=== PATIENT | male | born 1960 | race Caucasian/White ===

== ENCOUNTER → 2018-08-31 14:16 | Outpatient (REF) | payer MEDICARE, SELFPAY ==
[2018-08-31 20:41] LABS: Basophils % 0.4 % (0.1-2.0); Eosinophils # 0.5 K/mm3 (0.0-0.4); Hematocrit 47.3 % (42.0-52.0); Hemoglobin 15.6 g/dL (14.1-18.0); Lymphocytes # 2.6 K/mm3 (0.7-4.5); Mean Corpuscular HGB Conc 32.9 g/dL (31.8-35.4); Mean Corpuscular Hemoglobin 30.8 pg (27.0-31.2); Mean Corpuscular Volume 93.5 fl (80-94); Mean Platelet Volume 8.3 fl (7.4-10.4); Monocytes # 0.7 K/mm3 (0.1-1.0); Monocytes % 7.9 % (1.7-9.3); Neutrophils # 5.2 K/mm3 (1.8-7.8); Neutrophils % 57.7 % (37.0-80.0); Platelet Count 231 K/mm3 (142-424); Red Blood Count 5.05 M/mm3 (4.60-6.20); Red Cell Distribution Width 13.3 % (11.5-17.5)
[2018-08-31 21:06] LABS: Alanine Aminotransferase 84 U/L (12-78); Albumin Level 3.6 gm/dL (3.4-5.0); Albumin/Globulin Ratio 0.9 (1.1-1.8); Alkaline Phosphatase 113 U/L (46-116); Anion Gap 12.1 mEq/L (5-15); Aspartate Amino Transferase 42 U/L (15-37); Bilirubin,Total 0.5 mg/dL (0.2-1.0); Blood Urea Nitrogen 14 mg/dL (7-18); Calcium 8.6 mg/dL (8.5-10.1); Carbon Dioxide 25 mmol/L (21.0-32.0); Chloride 105 mmol/L (98-107); Creatinine,Serum 0.83 mg/dL (0.70-1.30); Estimated Glomerular Filt Rate 95 ml/min (>60); Free T4 (Free Thyroxine) 0.94 ng/dl (0.76-1.46); GFR (African American) 115 ML/MIN (>60); Globulin 4.2 gm/dl (1.3-3.2); Glucose 119 mg/dL (74-106); Potassium 4.1 mmoL/L (3.5-5.1); Sodium 138 mmol/L (136-145); Thyroid Stimulating Hormone 1.35 uIU/ml (0.358-3.740); Total Protein,Serum 7.8 gm/dL (6.4-8.2)
[2018-08-31 21:43] LABS: Erythrocyte Sedimentation Rate 24 mm/hr (0-20)
== END ==
LOC: LAB 14:16
PROVIDERS: PCP Emergency Medicine; Visit Provider Emergency Medicine
DX: I10 Essential (primary) hypertension (principal)
CPT/HCPCS: 80053; 84439; 84443; 85025; 85651

== ENCOUNTER → 2019-04-14 06:46 | Outpatient (CLI) | payer MEDICARE, MEDICAID, SELFPAY ==
--- NOTE | 2019-04-14 06:48 | NM_ITS ---
CARDIOLITE SPECT MYOCARDIAL PERFUSION LEXISCAN, REST AND STRESS: [facility] REVIEW QGS EF AND WALL MOTION EVALUATION: QPS - PERFUSION EVALUATION HISTORY: C.P. DOSE: 10.0 mCi technetium 99m mibi intravenously at rest followed by 29.1 mCi technetium 99m mibi following the intravenous ministration of 0.4 mg of Lexiscan. Resting blood pressure is 140/69. Stress blood pressure 128/65. FINDINGS: Ejection fraction is calculated to be 50%. Uniform myocardial activity at both stress and rest gated images calculated ejection fraction of 50% with normal wall motion IMPRESSION: No scintigraphic evidence of Lexiscan-induced myocardial ischemia with normal ejection fraction normal wall motion
--- NOTE | 2019-04-14 06:48 | CA_ITS ---
PROCEDURE: 2-D M-mode and color Doppler study INDICATIONS FOR THE TEST: Chest pain + COPD Heart Murmur Tobacco Smoking Palpitations Fatigue+ Syncope Edema+ Hypertension+Diabetes Mellitus Rheumatic Fever SOB+CHACON Obesity Hyperlipidemia+ Family History HD+ Additional History STENTS,CABG,ABN EKG PATIENT INFORMATION HEIGHT:66 WEIGHT:230 GENDER: Male B/P:140/74 2-D/M-MODE INTERPRETATION: 2-D MEASUREMENTS OBSERVED VALUES IN CMS Right Ventricular Dimension (RVDd) 2.6 Interventricular Septum (Thickness)(IVsd) 1.1 Left Ventricular Internal Dimensions(LVIDd) 4.9 Left Ventricular Posterior Wall (Thickness)(LVPWd) 1.0 Aortic Root 3.3 Aortic Cusp Separation 2.2 Left Atrial Dimensions (LAD) 4.4 2D 1. Left atrium is mildly enlarged, left ventricle is normal size, mild concentric left ventricular hypertrophy, visually estimated ejection fraction 50% with no regional wall motion abnormality. 2. The right atrium and right ventricle are normal size and contractility. 3. The aortic valve is minimally thickened and fibrosed. 4. The mitral and tricuspid valvular grossly normal. 5. The pulmonic valve is poorly present. 6. No significant pericardial effusion noted. DOPPLER INTERROGATION: Doppler interrogation of the aortic, mitral and tricuspid valvular presence of mild mitral and tricuspid regurgitation, tricuspid regurgitation jet velocity is inadequate for calculation of the right ventricular systolic pressure, grade 1 diastolic dysfunction seen with tissue Doppler evidence of raised left atrial pressure. CONCLUSION: 1. Mildly enlarged left atrium, normal left ventricular size, mild concentric left ventricular hypertrophy, visually estimated ejection fraction of 50% with no regional wall motion abnormality, grade 1 diastolic dysfunction seen with tissue Doppler evidence of raised left atrial pressure. 2. Mild mitral and tricuspid regurgitation 3. No significant pericardial effusion noted
--- NOTE | 2019-04-14 10:21 | HMH.ITSHM ---
Current Home Medications as stated by this patient Blaise Mccray or policy services representative. []patoprazole nitro lisinopril bisoprolol atorvastatin amlodipine asa
== END ==
PROVIDERS: PCP Emergency Medicine; Visit Provider Internal Medicine
DX: I11.9 Hypertensive heart disease without heart failure (principal); I25.10 Atherosclerotic heart disease of native coronary artery without angina pectoris; I25.709 Atherosclerosis of coronary artery bypass graft(s), unspecified, with unspecified angina pectoris; R06.09 Other forms of dyspnea; R07.9 Chest pain, unspecified; R68.84 Jaw pain; Z95.5 Presence of coronary angioplasty implant and graft; E78.4 Other hyperlipidemia
CPT/HCPCS: 78452; 93017; 93306; A9502; J2785

== ENCOUNTER 2019-05-03 09:40 | Emergency (ER) | payer MEDICARE, MEDICAID, SELFPAY ==
[2019-05-03 09:49] VITALS: BP 149/83; PULSE 75; RESP 18; TEMP 36.7; O2SAT 97; BMI 36.8
--- NOTE | 2019-05-03 09:51 | CT_ITS ---
CT lower leg LT w con INDICATION: Pain and swelling with cellulitis along the anterior tibial region ITS.REASON: r/o abscess, worsening cellulitis ORDERING PHYSICIAN: Sukhdeep Olsen MD PATIENT AGE: 59 years COMPARISON: None TECHNIQUE: Contrast Used:70ml Optiray 350 Oral Contrast: Axial images were obtained. Sagittal and coronal reformatted images are reviewed as well. All CT scans at the facility use one or more dose reduction, viz: automated exposure control, ma/kV adjustment per patient size (including targeted exams where dose is matched to indication, i.e. head), or iterative reconstruction technique. FINDINGS: There is a 6.5 x 2 x 3 cm nonencapsulated fluid collection along the anterior and medial aspect of the mid shaft of the tibia corresponding to the palpable abnormality. There is thickening of the overlying skin. No gas evident within this collection. No enhancing margins. It could represent a hematoma or developing abscess. No osseous abnormalities apparent. No bony destructive process. No radiopaque foreign body. IMPRESSION: Nonencapsulated fluid collection in the subcutaneous soft tissues of the anterior and medial aspect of the mid tibia which may represent hematoma or developing abscess. There is associated thickening of the overlying skin with edema consistent with cellulitis.
--- NOTE | 2019-05-03 09:53 | HMH.EDGENADL ---
ED Disposition Clinical Impression: Posttraumatic pretibial hematoma of left lower extremity Clinical Impression: (Ruled Out): Cervical radicular pain, Foraminal stenosis of cervical region Disposition: Home, Self-Care Condition on Discharge: Fair Prescriptions: Sulfamethoxazole/Trimethoprim [Bactrim DS tablet] 1 each PO BID 8 Days #16 tab predniSONE [Prednisone 20mg Tab] 60 mg PO DAILY 5 Days #15 tab Tizanidine HCl [Zanaflex 4mg tablet] 4 mg PO BID 7 Days #16 tab Referrals: Sukhdeep Flores MD [Primary Care Provider] - Time of Disposition: 13:24 - Critical Care Critical Care Time: No Attestation: On 05/03/19, the high probability of a clinically significant, sudden or life threatening deterioration of the following system(s) required my full and direct attention, intervention and personal management. The time I documented below is in addition to time spent performing reported procedures but includes the following listed in this critical care notation. Medical Decision Making - Medical Records Medical records reviewed: Yes: I reviewed the patient's medical records. - Renny Inquiry Pt receiving controlled substance: No Renny was queried for this patient: No Vital Signs: 05/03/19 09:49 Temperature 98.0 F Temperature Source Oral Pulse Rate [Right Apical] 75 Respiratory Rate 18 Blood Pressure [Right Arm] 149/83 H Blood Pressure Mean [Right Arm] 105 02 Sat by Pulse Oximetry 97 Oxygen Delivery Method Room Air - Lab Data Lab results reviewed: Yes: I reviewed the patient's lab results. Lab Results 05/03/19 10:00: WBC 10.8, RBC 5.45, Hgb 15.7, Hct 48.6, MCV 89.2, MCH 28.9, MCHC 32.4, RDW 13.5, Plt Count 236, MPV 6.9 L, Neut % (Auto) 56.4, Lymph % (Auto) 29.8, Bremer % (Auto) 7.1, Eos % (Auto) 5.9, Baso % (Auto) 0.8, Neut # (Auto) 6.1, Lymph # (Auto) 3.2, Bremer # (Auto) 0.8, Eos # (Auto) 0.6 H, Baso # (Auto) 0.1 05/03/19 10:00: Sodium 138, Potassium 4.4, Chloride 104, Carbon Dioxide 27, Anion Gap 11.4, BUN 11, Creatinine 1.03, Estimated Creat Clear 113, Estimated GFR 74, Est GFR ( Amer) 89, Glucose 103, Calcium 8.5, Total Bilirubin 0.4, AST 35, ALT 57, Alkaline Phosphatase 120 H, Total Protein 8.3 H, Albumin 3.4, Globulin 4.9 H, Albumin/Globulin Ratio 0.7 L 05/03/19 10:00: Lactate 1.4 05/03/19 10:00: ESR 2 05/03/19 10:00: C-Reactive Protein 0.4 05/03/19 10:00: Hemoglobin A1c 6.4 Result diagrams: 05/03/19 10:00 05/03/19 10:00 Orders (Tests/Meds): ED MEDICATIONS Generic Name Dose Route Start Last Admin Trade Name Freq PRN Reason Stop Dose Admin Sodium Chloride 1,000 mls @ 250 mls/hr 05/03/19 10:00 05/03/19 10:17 Sod Chlor 0.9% 1000ml Bag IV 06/02/19 09:59 250 mls/hr .Q4H SMILEY Administration Discontinued Medications Generic Name Dose Route Start Last Admin Trade Name Freq PRN Reason Stop Dose Admin Hydromorphone HCl 1 mg 05/03/19 12:54 05/03/19 13:08 Dilaudid 2mg/Ml Syringe IV 05/03/19 12:55 1 mg ONCE ONE Administration Ioversol 75 ml 05/03/19 11:04 05/03/19 11:04 Rad-Optiray 350 100ml Vial IV 05/03/19 11:05 75 ml ONCE ONE Administration Protocol Sodium Chloride 10 ml 05/03/19 11:04 05/03/19 11:04 Rad-Saline Flush 10ml Syringe IV 05/03/19 11:05 10 ml ONCE ONE Administration ORDERS Category Date Time Status CT lower leg LT w con Stat Cat Scan 05/03/19 09:51 Taken Blood Culture Stat Micro 05/03/19 10:30 Received - Physician Consults Physician Consulted: felice Time: 12:31 Reason -: Orthopedic Eval/Care Comment/Response: spoke with Niall in specialty clinic. Dr. Cope will evaluate when she arrives here at [facility] today for office practice. Will hold on giving vancomycin until her consult as she may want to i&d patient and obtain cultures in OR Additional Consult: felice Comment/Response: patient had wound opened, hematoma drained, packed lightly by Dr. Cope herself, not this ED physician - Reevaluation(s) Time: 12:4
--- NOTE | 2019-05-03 09:57 | ED_ITS ---
ED Disposition Clinical Impression: Posttraumatic pretibial hematoma of left lower extremity Clinical Impression: (Ruled Out): Cervical radicular pain, Foraminal stenosis of cervical region Disposition: Home, Self-Care Condition on Discharge: Fair Prescriptions: Sulfamethoxazole/Trimethoprim [Bactrim DS tablet] 1 each PO BID 8 Days #16 tab predniSONE [Prednisone 20mg Tab] 60 mg PO DAILY 5 Days #15 tab Tizanidine HCl [Zanaflex 4mg tablet] 4 mg PO BID 7 Days #16 tab Referrals: Sukhdeep Flores MD [Primary Care Provider] - Time of Disposition: 13:24 - Critical Care Critical Care Time: No Attestation: On 05/03/19, the high probability of a clinically significant, sudden or life threatening deterioration of the following system(s) required my full and direct attention, intervention and personal management. The time I documented below is in addition to time spent performing reported procedures but includes the following listed in this critical care notation. Medical Decision Making - Medical Records Medical records reviewed: Yes: I reviewed the patient's medical records. - Renny Inquiry Pt receiving controlled substance: No Renny was queried for this patient: No Vital Signs: 05/03/19 09:49 Temperature 98.0 F Temperature Source Oral Pulse Rate [Right Apical] 75 Respiratory Rate 18 Blood Pressure [Right Arm] 149/83 H Blood Pressure Mean [Right Arm] 105 02 Sat by Pulse Oximetry 97 Oxygen Delivery Method Room Air - Lab Data Lab results reviewed: Yes: I reviewed the patient's lab results. Lab Results 05/03/19 10:00: WBC 10.8, RBC 5.45, Hgb 15.7, Hct 48.6, MCV 89.2, MCH 28.9, MCHC 32.4, RDW 13.5, Plt Count 236, MPV 6.9 L, Neut % (Auto) 56.4, Lymph % (Auto) 29.8, [place] % (Auto) 7.1, Eos % (Auto) 5.9, Baso % (Auto) 0.8, Neut # (Auto) 6.1, Lymph # (Auto) 3.2, [place] # (Auto) 0.8, Eos # (Auto) 0.6 H, Baso # (Auto) 0.1 05/03/19 10:00: Sodium 138, Potassium 4.4, Chloride 104, Carbon Dioxide 27, Anion Gap 11.4, BUN 11, Creatinine 1.03, Estimated Creat Clear 113, Estimated GFR 74, Est GFR ( Amer) 89, Glucose 103, Calcium 8.5, Total Bilirubin 0.4, AST 35, ALT 57, Alkaline Phosphatase 120 H, Total Protein 8.3 H, Albumin 3 .4, Globulin 4.9 H, Albumin/Globulin Ratio 0.7 L 05/03/19 10:00: Lactate 1.4 05/03/19 10:00: ESR 2 05/03/19 10:00: C-Reactive Protein 0.4 05/03/19 10:00: Hemoglobin A1c 6.4 Result diagrams: 05/03/19 10:00 05/03/19 10:00 Orders (Tests/Meds): ED MEDICATIONS Generic Name Dose Route Start Last Admin Trade Name Freq PRN Reason Stop Dose Admin Sodium Chloride 1,000 mls @ 250 mls/hr 05/03/19 10:00 05/03/19 10:17 Sod Chlor 0.9% 1000ml Bag IV 06/02/19 09:59 250 mls/hr .Q4H SMILEY Administration Discontinued Medications Generic Name Dose Route Start Last Admin Trade Name Freq PRN Reason Stop Dose Admin Hydromorphone HCl 1 mg 05/03/19 12:54 05/03/19 13:08 Dilaudid 2mg/Ml Syringe IV 05/03/19 12:55 1 mg ONCE ONE Administration Ioversol 75 ml 05/03/19 11:04 05/03/19 11:04 Rad-Optiray 350 100ml Vial IV 05/03/19 11:05 75 ml ONCE ONE Administration Protocol Sodium Chloride 10 ml 05/03/19 11:04 05/03/19 11:04 Rad
[2019-05-03 10:09] LABS: Basophils # 0.1 K/mm3 (0-0.2); Basophils % 0.8 % (0.1-2.0); Eosinophils # 0.6 K/mm3 (0.0-0.4); Eosinophils % 5.9 % (0.1-12.0); Hematocrit 48.6 % (42.0-52.0); Hemoglobin 15.7 g/dL (14.1-18.0); Lymphocytes # 3.2 K/mm3 (0.7-4.5); Lymphocytes % 29.8 % (10-50); Mean Corpuscular HGB Conc 32.4 g/dL (31.8-35.4); Mean Corpuscular Hemoglobin 28.9 pg (27.0-31.2); Mean Corpuscular Volume 89.2 fl (80-94); Mean Platelet Volume 6.9 fl (7.4-10.4); Monocytes # 0.8 K/mm3 (0.1-1.0); Monocytes % 7.1 % (1.7-9.3); Neutrophils # 6.1 K/mm3 (1.8-7.8); Neutrophils % 56.4 % (37.0-80.0); Platelet Count 236 K/mm3 (142-424); Red Blood Count 5.45 M/mm3 (4.60-6.20); Red Cell Distribution Width 13.5 % (11.5-17.5); White Blood Count 10.8 K/mm3 (4.8-10.8)
[2019-05-03 10:35] LABS: Alanine Aminotransferase 57 U/L (12-78); Albumin Level 3.4 gm/dL (3.4-5.0); Albumin/Globulin Ratio 0.7 (1.1-1.8); Alkaline Phosphatase 120 U/L (46-116); Anion Gap 11.4 mEq/L (5-15); Aspartate Amino Transferase 35 U/L (15-37); Bilirubin,Total 0.4 mg/dL (0.2-1.0); Blood Urea Nitrogen 11 mg/dL (7-18); Calcium 8.5 mg/dL (8.5-10.1); Carbon Dioxide 27 mmol/L (21.0-32.0); Chloride 104 mmol/L (98-107); Creatinine Clearance Estimated 113 mL/min (50-200); Creatinine,Serum 1.03 mg/dL (0.70-1.30); Estimated Glomerular Filt Rate 74 ml/min (>60); GFR (African American) 89 ML/MIN (>60); Globulin 4.9 gm/dl (1.3-3.2); Glucose 103 mg/dL (74-106); Potassium 4.4 mmoL/L (3.5-5.1); Sodium 138 mmol/L (136-145); Total Protein,Serum 8.3 gm/dL (6.4-8.2)
[2019-05-03 10:36] LABS: Lactic Acid 1.4 mmol/L (0.4-2.0)
[2019-05-03 10:47] LABS: C-Reactive Protein 0.4 mg/L (0.0-0.9)
[2019-05-03 10:53] LABS: Hemoglobin A1C 6.4 % (0.0-7.0)
--- NOTE | 2019-05-03 11:10 | PC.NURSE ---
PT BACK FROM CT
[2019-05-03 11:40] LABS: Erythrocyte Sedimentation Rate 2 mm/hr (0-20)
--- NOTE | 2019-05-03 12:44 | PC.NURSE ---
Dr. Cope at bedside
--- NOTE | 2019-05-03 13:09 | PC.NURSE ---
Dr. Cope follow up 05/11/19 at 1:00pm
[2019-05-03 14:57] VITALS: BP 124/74; PULSE 81; RESP 18; TEMP 36.7; O2SAT 98
== END 2019-05-03 14:59 | disposition home or self-care (01) ==
PROVIDERS: Emergency Provider Emergency Medicine; PCP Emergency Medicine
DX: L02.416 Cutaneous abscess of left lower limb (principal); I10 Essential (primary) hypertension; Z88.5 Allergy status to narcotic agent; Z87.891 Personal history of nicotine dependence
CPT/HCPCS: 73701; 80053; 83036; 83605; 85025; 85651; 86140; 87040; 96365; 96366; 96374; 96375; 99282; Q9967

== ENCOUNTER → 2019-07-25 11:20 | Outpatient (CLI) | payer MEDICARE, MEDICAID, SELFPAY ==
[2019-07-25 13:08] LABS: Alanine Aminotransferase 68 U/L (12-78); Albumin Level 3.3 gm/dL (3.4-5.0); Alkaline Phosphatase 116 U/L (46-116); Aspartate Amino Transferase 36 U/L (15-37); Bilirubin,Total 0.2 mg/dL (0.2-1.0); Chol/HDL Ratio 4.8 (1-3.5); Cholesterol 124 mg/dL (140-200); HDL Cholesterol 26 mg/dL (27-67); LDL Cholesterol 55 mg/dL (0-130); Total Protein,Serum 7.6 gm/dL (6.4-8.2); Triglycerides 217 mg/dL (30-200); VLDL Cholesterol 43 mg/dL (0-40)
[2019-07-25 13:19] LABS: Bilirubin,Direct 0.1 mg/dL (0.0-0.2); Bilirubin,Indirect 0.1 mg/dL (0.0-0.9)
== END ==
PROVIDERS: Visit Provider Nurse Practitioner Family
DX: E66.9 Obesity, unspecified (principal); I25.10 Atherosclerotic heart disease of native coronary artery without angina pectoris; I25.709 Atherosclerosis of coronary artery bypass graft(s), unspecified, with unspecified angina pectoris; T82.898A Other specified complication of vascular prosthetic devices, implants and grafts, initial encounter; Z95.5 Presence of coronary angioplasty implant and graft
CPT/HCPCS: 36415; 80061; 80076

== ENCOUNTER 2020-01-17 08:09 | Outpatient (RCR) | payer MEDICARE, MEDICAID, SELFPAY ==
--- NOTE | 2020-01-17 09:26 | HMH.PTOPEV ---
PT Outpatient Evaluation Rehab PT Outpatient Evaluation Start: 01/17/20 08:12 Freq: Status: Active Protocol: Document 01/17/20 09:09 BRANDON (Rec: 01/17/20 09:26 PHOIVIS [id number]) Electronically Signed By Onesimo Saul, PT 01/17/20 09:09 Outpatient Therapy Subjective History Subjective History Pt is 59 yowm who presents with c/o pain/stiffness/ weakness in the R LE x ~ 1 yr with insidious onset of symptoms. He states, I just get real weak even trying to clean the house. Pt is a poor historian and has difficulty pinpointing an exact location for his symptoms. He does have hx of R LE saphenous vein graft harvest for CABG. He has PMH of CO, CABG, DVT, stents, HTN, HL, and low back pain. He reports soreness, pain, and weakness with walking. However, he states If I walk about a 1/4 mile, thats when it starts to bother me. Chief Complaint Pain,Stiff,Weakness Symptom Type Ache,Sharp,Dull Symptoms Relieved By Rest/Positioning Symptoms Aggravated By Physical Activity,Walking Prior Functional Limitations None Current Functional Limitations Recreation Activity,Walking Symptom Description Constant but Variable Level of pain today (0-10) 3 Pain scale - at its worst (0-10) 8 Hip/Knee Eval Gait Observation General Gait Pattern Observation No Deviations/Normal Palpation Tenderness right Hip Palpation Findings Tenderness MMT bilateral Hip Flexion Strength Grade 5 Normal Hip Abduction Strength Grade 5 Normal Hip Adduction Strength Grade 5 Normal Hip Extension Strength Grade 5 Normal Gluteus Paxton Strength Grade 5 Normal Hip External Rotation Strength Grade 5 Normal Hip Internal Rotation Strength Grade 5 Normal Knee Extension Strength Grade 5 Normal Knee Flexion Strength Grade 5 Normal DTR Rt Patellar 2+ Lt Patellar 2+ Rt Ankle 2+ Lt Ankle 2+ Special Tests Hip Bowstring (Cram) Test Positive Left,Positive Right Hip Piriformis Test Negative Left,Positive Right Sciatic Nerve Tension Test Negative Left,Positive Right Hip Scouring (Quadrant) Test Negative Left,Negative Right Outpatient Therapy Assessment Impairments Problems/Impairmments
== END 2020-01-17 09:02 | disposition home or self-care (01) ==
LOC: PT 08:09
PROVIDERS: PCP Emergency Medicine; Visit Provider Emergency Medicine
DX: M79.18 Myalgia, other site (principal)
CPT/HCPCS: 97110; 97163

== ENCOUNTER → 2020-01-18 12:50 | Outpatient (CLI) | payer MEDICARE, MEDICAID, SELFPAY ==
--- NOTE | 2020-01-18 12:51 | US_ITS ---
APPROVED REPORT Exam Type: Ankle to Brachial Index Spotter: America Holloway RT(R) Indications Claudication: Right History of Smoking Risk Factors Hypertension CAD Hyperlipidemia Obesity Cardiac Disease History of CABG, 4 cardiac stents Pressures/Indices Right Indices Left Indices Brachial 137.00 mmHg Brachial 138.00 mmHg Low Thigh 92.00 mmHg 0.67 Low Thigh 132.00 mmHg 0.96 Calf 81.00 mmHg 0.59 Calf 126.00 mmHg 0.91 Ankle(PT) 96.00 mmHg 0.70 Ankle(PT) 145.00 mmHg 1.05 Ankle(DP) 88.00 mmHg 0.64 Ankle(DP) 135.00 mmHg 0.98 Digit 51.00 mmHg 0.37 Digit 111.00 mmHg 0.80 Conclusion RT KAYCE=0.7 LT KAYCE=1.1 RT TBI=0.4 LT TBI=0.8 Diminished pulses right lower extremity Abnormal distal waveforms right lower extremity Left lower extremity normal pulses, normal waveforms MODERATE ARTERIAL DISEASE ON THE RIGHT Electronically signed by : Will Gupta MD 01/19/2020 16:01:03
== END ==
PROVIDERS: PCP Emergency Medicine; Visit Provider Emergency Medicine
DX: R06.00 Dyspnea, unspecified (principal); I73.9 Peripheral vascular disease, unspecified
CPT/HCPCS: 93923; 94060; 94618; 94726; 94729

== ENCOUNTER 2020-03-04 08:19 | Day surgery (SDC) | payer MEDICARE, MEDICAID, SELFPAY ==
[2020-03-04] VITALS (16 sets, daily range): BP systolic 107–153; BP diastolic 57–94; PULSE 60–82; RESP 16–20; TEMP 36.7–36.9; O2SAT 94–100; BMI 37.3
--- NOTE | 2020-03-04 | IR_ITS ---
APPROVED REPORT Patient Location: Outpatient Substation Manager: WARREN Stack RT (R) PROCEDURES Right femoral arterial access Catheter placement in the abdominal aorta Abdominal aortography Repositioning of the catheter in the abdominal aorta Bilateral iliofemoral runoff Left femoral arterial access Bare-metal stent deployment to the proximal popliteal artery extending back into the superficial femoral artery Bare-metal stent deployment to the distal common femoral artery Angioplasty to the profunda femoris Catheter placement in the right popliteal artery Right popliteal artery antegrade selective angiogram INDICATION Jennifer class III claudication, Abnormal KAYCE 0.7 right side, Peripheral artery disease Informed consent was obtained prior to the procedure. COMPLICATIONS none Estimated Blood Loss: less than 10 mls TECHNIQUE 1% lidocaine used to anesthetize the right groin the right femoral artery was accessed via the Salinger technique and a 5 Indonesian sheath was placed in the right femoral artery. The pigtail catheter was placed to the abdominal aorta and abdominal aortography was performed. The catheter was then repositioned and bilateral iliofemoral runoff was performed. Following this 1% lidocaine was used to anesthetize the left groin and the left femoral artery was accessed via the Salinger technique. A 6 Indonesian destination sheath was placed in the left femoral artery and using a JR4 catheter and an advantage wire the right common iliac artery was cannulated and the wire was advanced into the profunda femoris artery. The destination sheath was then advanced under fluoroscopic guidance to the proximal right common femoral artery. Therapeutic heparin was administered. Using a trailblazer catheter and the advantage wire the proximal superficial femoral artery occlusion was traversed with the catheter and the wire. Distally the wire recannulated into the popliteal artery. The trailblazer was advanced into the popliteal artery and the wire was removed. Selective right popliteal artery angiography was performed. Following this a 6 mm x 100 mm Souza pro SMART stent was deployed in the popliteal artery extending back into the superficial femoral artery. An additional 6 mm x 100 mm EV 3 self-expanding stent was then deployed proximal to the first stent yet still overlapping the stent. A 5 mm x 100 mm balloon was used to predilate the SFA prior to the deployment of the EV 3 stent. The balloon was advanced to the superficial femoral artery and also deployed. Following this there was no flow identified in the profunda femoris artery. Angiography demonstrated a dissection flap extended back into the common femoral artery. Given the significant dissection flap a 7 mm x 80 mm Smart Souza pro stent was deployed which extended back into the proximal SFA and distal common femoral artery. This restored normal flow down into the superficial femoral artery. An advantage wire was then used to cannulate the profunda femoris artery nitroglycerin was administered and 5 mm x 40 mm balloon was deployed several times to tack back the dissection. At the end of the procedure there was excellent flow into the profunda femoris artery as well as the common femoral artery and superficial femoral artery. At the end of the procedure the apparatus was removed the groin was reprepped gloves were changed sheath was removed good hemostasis was achieved using manual pressure after Perclose device did not capture. Patient was transferred to the postop holding in stable condition. Prior to proceeding with left groin access the right groin was reprepped gloves were changed sheath was removed good hemostasis was achieved using Per
[2020-03-04 09:10] LABS: Basophils # 0.2 K/mm3 (0-0.2); Basophils % 2.2 % (0.1-2.0); Eosinophils # 0.6 K/mm3 (0.0-0.4); Hemoglobin 15.8 g/dL (14.1-18.0); Lymphocytes # 3.4 K/mm3 (0.7-4.5); Lymphocytes % 30.7 % (10-50); Mean Corpuscular Hemoglobin 30.4 pg (27.0-31.2); Mean Corpuscular Volume 92.1 fl (80-94); Mean Platelet Volume 7.7 fl (7.4-10.4); Monocytes # 0.7 K/mm3 (0.1-1.0); Monocytes % 6.6 % (1.7-9.3); Neutrophils # 6.1 K/mm3 (1.8-7.8); Neutrophils % 55.5 % (37.0-80.0); Platelet Count 239 K/mm3 (142-424); Red Blood Count 5.21 M/mm3 (4.60-6.20); Red Cell Distribution Width 13.7 % (11.5-17.5)
[2020-03-04 09:24] LABS: Chloride 105 mmol/L (98-107); Sodium 139 mmol/L (136-145)
[2020-03-04 09:27] LABS: Blood Urea Nitrogen 14 mg/dl (9-20); Carbon Dioxide 26 mmol/L (22.0-30.0); Creatinine Clearance Estimated 168 mL/min (50-200); Estimated Glomerular Filt Rate 115 ml/min (>60); GFR (African American) 140 ML/MIN (>60); Glucose 84 mg/dl (74-100)
[2020-03-04 13:09] LABS: CATHL Activated Clotting Time 318 SEC (74-125)
--- NOTE | 2020-03-04 17:56 | PC.NURSE ---
1600 Slightly more sanguineous drainage noted on gauze of left femoral site. Marked and timed per RN. 1735 Pt up to sitting position without difficulty.
--- NOTE | 2020-03-04 18:29 | PC.NURSE ---
at discharge, no further drainage noted from left femoral site. pt informed to call ED for any concerns overnight and to seek care at ED for excessive bleeding. Pt was informed that gauze might have more blood on it when he begins to ambulate, but gauze should not be removed, only reinforced. Pt verbalized understanding.
--- NOTE | 2020-03-05 09:25 | HMH.PHACLD ---
Blaise Mccray has received discharge medication counseling on the following medications: PATIENT ALREADY TAKING: ASPIRIN 81 MG DAILY ATORVASTATIN 40 MG HS BISOPROLOL 10 MG DAILY MD ADDING CLOPIDOGREL 75 MG DAILY. SCRIPT WAS CALLED INTO [facility].
== END 2020-03-04 18:32 | disposition home or self-care (01) ==
LOC: CATHLAB 08:21
PROVIDERS: PCP Emergency Medicine; Visit Provider Internal Medicine
DX: I11.0 Hypertensive heart disease with heart failure (principal); Z87.891 Personal history of nicotine dependence; I77.1 Stricture of artery
CPT/HCPCS: 37226; 80048; 85025; 85347; 99152; 99153; C1725; C1760; C1766; C1769; C1876; C1894; J1644; J2720; Q9966

== ENCOUNTER → 2020-03-05 14:05 | Outpatient (CLI) | payer MEDICARE, MEDICAID, SELFPAY ==
--- NOTE | 2020-03-05 14:06 | CA_ITS ---
APPROVED REPORT Sdet: Alyssa Barrientos, COMPUTATIONAL MATHEMATICIAN Indications History of Smoking Surgery/Intervention Pt had angio with stent placement in right [employer]ER 03/04/20 Findings No evidence of pseudoaneurysm, hematoma, or AV fistula of the right groin. Tatiana Barth examined pt prior to discharge from vascular lab. Conclusion No evidence of pseudoaneurysm, hematoma, or AV fistula of the right groin. Electronically signed by : Will Gupta MD 03/05/2020 19:01:46
== END ==
PROVIDERS: PCP Emergency Medicine; Visit Provider Urology
DX: I77.0 Arteriovenous fistula, acquired (principal); N48.89 Other specified disorders of penis
CPT/HCPCS: 93926

== ENCOUNTER → 2020-05-07 13:53 | Outpatient (CLI) | payer MEDICARE, MEDICAID, SELFPAY ==
[2020-05-07 14:13] LABS: Chol/HDL Ratio 3.4 (1-3.5); Cholesterol 131 mg/dl (140-200); HDL Cholesterol 39 mg/dl (40-60); Triglycerides 109 mg/dl (30-150); VLDL Cholesterol 22 mg/dL (0-40)
[2020-05-07 14:24] LABS: Direct LDL Cholesterol 75.07 mg/dL (100-129)
[2020-05-07 14:30] LABS: Free T4 (Free Thyroxine) 0.88 ng/dl (0.78-2.19)
== END ==
PROVIDERS: Visit Provider Emergency Medicine
DX: R06.00 Dyspnea, unspecified (principal); E66.9 Obesity, unspecified
CPT/HCPCS: 80061; 84439; 84443

== ENCOUNTER 2020-05-16 08:39 | Day surgery (SDC) | payer MEDICARE, MEDICAID, SELFPAY ==
[2020-05-16] VITALS (37 sets, daily range): BP systolic 119–146; BP diastolic 62–82; PULSE 59–76; RESP 16–20; TEMP 36.4–36.6; O2SAT 94–100; BMI 36.9
--- NOTE | 2020-05-16 | IR_ITS ---
APPROVED REPORT PROCEDURES Pigtail catheter in the abdominal aorta Bilateral iliofemoral runoff Bare-metal stent deployment to the proximal superficial femoral artery INDICATION Peripheral artery disease, [place] class III claudication, Atherosclerosis of the left superficial femoral artery Informed consent was obtained prior to the procedure. TECHNIQUE 1% lidocaine used anesthetize right groin the right femoral artery was accessed via the Salinger technique and a 4 Mexican sheath this patient right femoral artery. A pigtail catheter was advanced and abdominal aortography with bilateral iliofemoral runoff was performed. Following this therapeutic heparin was administered and a long advantage wire was used to traverse the stenosis in the left superficial femoral artery. The 4 Mexican sheath was exchanged for a long 6 Mexican destination sheath. A 6 mm x 20 mm EV 3 self-expanding stent was deployed followed by postdilatation with a 5 mm x 20 mm balloon at 14 urszula reducing the severe stenosis to 10%. Excellent angiographic results were obtained. At the end of the procedure the patient was transferred to the postop holding area stable condition for sheath removal ANGIOGRAPHIC RESULTS The distal abdominal aorta is widely patent The bilateral common and internal iliac arteries are widely patent the bilateral external iliac arteries are widely patent The bilateral common femoral arteries are widely patent The right profunda femoris artery is widely patent The right superficial femoral artery is widely patent with excellent antegrade flow. Extends into the right popliteal artery which has mild atheromatous plaque but widely patent with two-vessel runoff below the knee The left profunda femoris artery is widely patent Left superficial femoral artery has a proximal eccentric greater than 90% calcified stenosis with the rest of the vessel being small in caliber but patent. The left popliteal artery is widely patent and there is three-vessel runoff below the knee on the left IMPRESSION Severe focal stenosis above the left superficial femoral artery as described above Successful stenting the left superficial femoral artery greater than 90% stenosis reduced to less than 10% with one bare-metal self-expanding stent PLAN 1. Aspirin and Plavix for 1 month then stop Plavix and and Xarelto 2.5 twice daily 2. LDL less than 55 3. Physical therapy 4. Avoidance of tobacco products 5. Standard therapy for ischemic poly-vascular disease Electronically signed by : Alfonso Gaming, 05/16/2020 12:58:25
[2020-05-16 09:20] LABS: Basophils # 0.1 K/mm3 (0-0.2); Basophils % 0.6 % (0.1-2.0); Eosinophils # 0.8 K/mm3 (0.0-0.4); Eosinophils % 6.4 % (0.1-12.0); Hemoglobin 16.5 g/dL (14.1-18.0); Lymphocytes # 3.3 K/mm3 (0.7-4.5); Lymphocytes % 27.3 % (10-50); Mean Corpuscular HGB Conc 33.7 g/dL (31.8-35.4); Mean Corpuscular Hemoglobin 31.1 pg (27.0-31.2); Mean Corpuscular Volume 92.4 fl (80-94); Mean Platelet Volume 7.5 fl (7.4-10.4); Monocytes # 0.7 K/mm3 (0.1-1.0); Monocytes % 5.7 % (1.7-9.3); Neutrophils # 7.2 K/mm3 (1.8-7.8); Neutrophils % 59.9 % (37.0-80.0); Platelet Count 229 K/mm3 (142-424); Red Cell Distribution Width 13.6 % (11.5-17.5)
[2020-05-16 09:22] LABS: Chloride 107 mmol/L (98-107); Potassium 4.2 mmoL/L (3.5-5.1); Sodium 138 mmol/L (136-145)
[2020-05-16 09:25] LABS: Anion Gap 10.2 mEq/L (5-15); Blood Urea Nitrogen 12 mg/dl (9-20); Carbon Dioxide 25 mmol/L (22.0-30.0); Creatinine Clearance Estimated 165 mL/min (50-200); Estimated Glomerular Filt Rate 115 ml/min (>60); GFR (African American) 139 ML/MIN (>60)
[2020-05-16 09:26] LABS: Calcium 8.9 mg/dl (8.4-10.2); Glucose 127 mg/dl (74-100)
--- NOTE | 2020-05-16 14:00 | SUR.PHASEII ---
PT CARE TO BE TAKEN OVER BY MACEY BEARD
[2020-05-16 15:03] LABS: CATHL Activated Clotting Time > 400 SEC (74-125)
[2020-05-16 16:53] LABS: CATHL Activated Clotting Time 197 SEC (74-125)
--- NOTE | 2020-06-21 09:04 | HMH.PHACLD ---
Blaise Mccray has received discharge medication counseling on the following medications: PATIENT RECEIVED A PERIPHERAL STENT, BETA-NERY AND REGINA/ARB ARE NOT INDICATED. NEW MEDICATION: PLAVIX CONTINUE MEDICATION: ATORVASTATIN, ASPIRIN
== END 2020-05-16 18:45 | disposition home or self-care (01) ==
LOC: CATHLAB 08:41 → 2ND 14:31
PROVIDERS: PCP Emergency Medicine; Visit Provider Internal Medicine
DX: I70.222 Atherosclerosis of native arteries of extremities with rest pain, left leg (principal); I25.10 Atherosclerotic heart disease of native coronary artery without angina pectoris; I25.708 Atherosclerosis of coronary artery bypass graft(s), unspecified, with other forms of angina pectoris; I11.0 Hypertensive heart disease with heart failure; I50.9 Heart failure, unspecified; Z95.1 Presence of aortocoronary bypass graft; Z88.5 Allergy status to narcotic agent; Z79.52 Long term (current) use of systemic steroids; Z79.01 Long term (current) use of anticoagulants; Z79.82 Long term (current) use of aspirin; Z79.899 Other long term (current) drug therapy; I77.1 Stricture of artery
CPT/HCPCS: 37226; 80048; 85025; 85347; 99152; 99153; C1725; C1766; C1769; C1876; J1644; J2720; Q9967

== ENCOUNTER → 2020-05-20 17:10 | Outpatient (CLI) | payer MEDICARE, MEDICAID, SELFPAY ==
[2020-05-20 19:46] LABS: Prostate Specific Ag Screen 0.4 ng/ml (0.0-4.0)
== END ==
PROVIDERS: Visit Provider Urology
DX: Z12.5 Encounter for screening for malignant neoplasm of prostate (principal)
CPT/HCPCS: 36415; G0103

== ENCOUNTER → 2020-07-02 15:10 | Outpatient (POV) | payer MEDICARE, MEDICAID, SELFPAY | PROVIDERS: Visit Provider Dermatology | DX: Z00.00 Encounter for general adult medical examination without abnormal findings (principal) ==

== ENCOUNTER 2020-08-16 13:35 | Emergency (ER) | payer MEDICARE, MEDICAID, SELFPAY ==
[2020-08-16 13:56] VITALS: BP 147/69; PULSE 67; RESP 18; TEMP 37.7; O2SAT 96; BMI 37.4
--- NOTE | 2020-08-16 14:04 | HMH.EDUTC ---
[facility] [place] Disposition Clinical Impression: Sinusitis Qualifiers: Sinusitis location: unspecified location Chronicity: acute Recurrence: non-recurrent Qualified Code(s): J01.90 - Acute sinusitis, unspecified Disposition: Home, Self-Care Condition on Discharge: Good Instructions: Sinusitis Additional Instructions: Drink plenty of fluids. Take tylenol or ibuprofen for pain or fever. Take the medications as directed. Follow up with your regular doctor. GO TO THE ER FOR ANY WORSENING SYMPTOMS FOLLOW THE DIRECTIONS ON THE COVID-19 HAND OUT THAT WE GAVE YOU REGARDING SELF-ISOLATION UNTIL YOU KNOW YOUR COVID-19 RESULTS Prescriptions: predniSONE [Deltasone 10mg tablet] 10 mg PO BID 5 Days #10 tab Transmission Status: Received by [facility] Azithromycin [Z-Reagan 250mg Tab*] 250 mg PO UD DOSE PK #6 tab Transmission Status: Received by [facility] Referrals: Sukhdeep Flores MD [Primary Care Provider] - Time of Disposition: 14:10 Medical Decision Making - Medical Records Medical records reviewed: No: I reviewed the patient's medical records. - Renny Inquiry Pt receiving controlled substance: No Vital Signs: 08/16/20 13:56 08/16/20 14:23 Temperature 99.9 F H 99.9 F H Temperature Source Temporal Artery Scan Temporal Artery Scan Pulse Rate 67 Pulse Rate [Radial] 67 Respiratory Rate 18 18 Blood Pressure 147/69 H Blood Pressure [Right Arm] 147/69 H Blood Pressure Mean [Right Arm] 95 Blood Pressure Source Automatic Cuff Blood Pressure Source [Right Arm] Automatic Cuff Blood Pressure Position Sitting Blood Pressure Position [Right Arm] Sitting 02 Sat by Pulse Oximetry 96 Oxygen Delivery Method Room Air Room Air [facility] [place] HPI - General Stated complaint: bronchits, sinus issue Time Seen by Provider: 08/16/20 14:08 Mode of Arrival: Ambulatory Source of Information: Patient Limitations: No Limitations Description of Symptoms (Recalled from Triage Doc. by RN): last week he got a PNA and FLu shot and now his sinus' are acting up and he is coughing up phlem HEENT Symptoms (Recalled from RN notes): Yes Resp Symptoms (Recalled from RN notes): No Skin Symptoms (Recalled from RN notes): No MS Symptoms (Recalled from RN notes): No Functional Status (Recalled from RN notes): wnl - History of Present Illness Provider Complaint: He c/o 3 days of cough and sinus congestion. He denies any known exposure to covid-19. He thinks that he has a sinus infection, but he has been chilling at night. - Related Data Home Medications Medication Instructions Recorded Confirmed Atorvastatin Calcium [Lipitor 40mg 40 mg PO ONCE 11/23/19 08/05/20 Tablet*] Pantoprazole Sodium [Protonix 40mg 40 mg PO QAM 11/23/19 08/05/20 tablet] Fluticasone/Vilanterol [Breo 1 inh INHALATION DAILY 05/16/20 08/05/20 Ellipta] clobetasol 0.05 % topical ointment 1 applic TOPICAL BID 08/05/20 08/05/20 Previous Rx's Medication Instructions Recorded aspirin 81 mg tablet,delayed 81 mg PO DAILY #90 tab 08/05/20 release rivaroxaban 2.5 mg tablet 2.5 mg PO BID #180 tab 08/05/20 tamsulosin 0.4 mg capsule 0.4 mg PO DAILY #90 cap 08/05/20 umeclidinium 62.5 mcg/actuation 1 inh INHALATION DAILY #30 each 08/05/20 blister powder for inhalation Azithromycin [Z-Reagan 250mg Tab*] 250 mg PO UD DOSE PK #6 tab 08/16/20 amlodipine 5 mg tablet See Rx Instructions .ROUTE 08/16/20 .COMPLEX #90 tab predniSONE [Deltasone 10mg tablet] 10 mg PO BID 5 Days #10 tab 08/16/20 Allergies Allergy/AdvReac Type Severity Reaction Status Date / Time codeine [CODEINE] Allergy Intermediate ITCHING Verified 08/05/20 10:12 - Worker's Comp Is this a Worker's Comp case?: No [facility] History - Hepatitis A Screen Drug use history?: No High risk sexual behaviors?: No History of sexually transmitted infection?: No Currently employed?: No Childcare worker?: No Do you have indoor plumbing?: Yes Do you have electricity?: Yes Attestati
[2020-08-16 14:23] VITALS: BP 147/69; PULSE 67; RESP 18; TEMP 37.7; O2SAT 96
== END 2020-08-16 14:24 | disposition home or self-care (01) ==
PROVIDERS: Emergency Provider Nurse Practitioner Family; PCP Emergency Medicine
DX: J01.90 Acute sinusitis, unspecified (principal); I25.2 Old myocardial infarction; I25.10 Atherosclerotic heart disease of native coronary artery without angina pectoris; K21.9 Gastro-esophageal reflux disease without esophagitis; I10 Essential (primary) hypertension; E78.5 Hyperlipidemia, unspecified; Z20.828 Contact with and (suspected) exposure to other viral communicable diseases; Z88.5 Allergy status to narcotic agent; Z79.899 Other long term (current) drug therapy; Z87.891 Personal history of nicotine dependence
CPT/HCPCS: 99201; U0003

== ENCOUNTER → 2021-06-06 08:39 | Outpatient (CLI) | payer MEDICARE, MEDICAID, SELFPAY ==
--- NOTE | 2021-06-06 08:44 | CT_ITS ---
PROCEDURE: CT ABDOMEN PELVIS WO CON CLINICAL INDICATION: flank pain COMPARISON: CT CT ABDOMEN PELVIS WO CON from 11/23/2019 TECHNIQUE: Axial images obtained with sagittal and coronal reformats. All CT scans at the facility use one or more dose reduction, viz: automated exposure control, ma/kV adjustment per patient size (including targeted exams where dose is matched to indication, i.e. head), or iterative reconstruction technique. FINDINGS: LOWER THORAX: Multiple calcified granulomas noted in the visualized lung bases. ABDOMEN & PELVIS: Evaluation of the upper abdominal solid viscera are limited due to lack of intravenous contrast. The liver, adrenal glands, kidneys and pancreas are unremarkable. No renal or ureteric calculi. The gallbladder is unremarkable. No intra or extrahepatic biliary dilation. Multiple splenic calcifications are noted, likely secondary to prior granulomatous disease. Multiple colonic diverticula without evidence of diverticulitis. The large and small bowel loops otherwise demonstrate no focal wall thickening, obstruction or adjacent inflammatory changes. The appendix is normal. No free fluid or free intraperitoneal air. No significant retroperitoneal or mesenteric lymphadenopathy. Atherosclerotic vascular calcification of the abdominal aorta and its branches. The prostate gland is unremarkable. Degenerative changes of the visualized lumbar spine. IMPRESSION: No evidence of renal or ureteric calculi. Colonic diverticula without evidence of diverticulitis. Dictated by: Alina Ch 06/06/2021 10:53 Alina Ch in OV 06/06/2021 10:53
== END ==
PROVIDERS: PCP Emergency Medicine; Visit Provider Emergency Medicine
DX: R10.9 Unspecified abdominal pain (principal)
CPT/HCPCS: 74176

== ENCOUNTER 2021-06-06 09:11 | Emergency (ER) | payer MEDICARE, MEDICAID, SELFPAY ==
[2021-06-06 09:32] VITALS: BP 137/61; PULSE 81; RESP 19; TEMP 36.6; O2SAT 97; BMI 32.3
--- NOTE | 2021-06-06 09:44 | HMH.EDUTC ---
[facility] [place] Clinical Impression: Psoriasis Disposition: Home, Self-Care Condition on Discharge: Good Instructions: Psoriasis, DI for Psoriasis, Hydrocortisone Topical Additional Instructions: Use topical medication as prescribed Follow up with Family Doctor for further evaluation and treatment Return if needed Straight to ER if any life threatening symptoms Prescriptions: Hydrocortisone [Hydrocortisone 1% Cream 30gm Tube] 1 applicatio TP BID #1 tube Transmission Status: Received by [facility] Referrals: Sukhdeep Flores MD [Primary Care Provider] - As needed Time of Disposition: 09:57 Medical Decision Making - Renny Inquiry Pt receiving controlled substance: No Renny was queried for this patient: No Vital Signs: 06/06/21 09:32 06/06/21 10:13 Temperature 97.9 F 97.9 F Temperature Source Oral Pulse Rate 81 Pulse Rate [Right Radial] 81 Respiratory Rate 19 19 Blood Pressure 137/61 Blood Pressure [Right Arm] 137/61 Blood Pressure Mean [Right Arm] 86 Blood Pressure Source [Right Arm] Automatic Cuff Blood Pressure Position [Right Arm] Sitting 02 Sat by Pulse Oximetry 97 Oxygen Delivery Method Room Air [facility] [place] HPI - General Stated complaint: rash on elbows/knees Time Seen by Provider: 06/06/21 09:44 Mode of Arrival: Ambulatory Source of Information: Patient Limitations: No Limitations Description of Symptoms (Recalled from Triage Doc. by RN): C/O rash on bilateral elbows and knees x7 months HEENT Symptoms (Recalled from RN notes): No Resp Symptoms (Recalled from RN notes): No Skin Symptoms (Recalled from RN notes): Yes (rash) MS Symptoms (Recalled from RN notes): No Functional Status (Recalled from RN notes): n/a - History of Present Illness Provider Complaint: Patient states that he has been having rash on his bilateral elbows and bilateral knees State that rash is dry, itchy and flaky at times States that he has seen someone and was given some cream but thinks its not working and he is out of it and thinks he was suppose to see someone for it but cant rememeber so he came in here to get it checked - Related Data Previous Rx's Medication Instructions Recorded fluticasone furoate 100 1 inh INHALATION DAILY #60 each 11/25/20 mcg-vilanterol 25 mcg/dose inhalation powder nitroglycerin 0.4 mg sublingual 0.4 mg SUBLINGUAL Q5-15M PRN #30 11/25/20 tablet tab tamsulosin 0.4 mg capsule 0.4 mg PO DAILY #90 cap 11/25/20 umeclidinium 62.5 mcg/actuation 1 inh INHALATION DAILY #30 each 11/25/20 blister powder for inhalation amlodipine 5 mg tablet 5 mg PO DAILY #30 tab 12/23/20 atorvastatin 40 mg tablet 40 mg PO HS #30 tab 12/23/20 bisoprolol fumarate 10 mg tablet 10 mg PO DAILY #30 tab 12/23/20 rivaroxaban 2.5 mg tablet 2.5 mg PO BID #60 tab 12/23/20 aspirin 81 mg tablet,delayed See Rx Instructions .ROUTE 05/16/21 release .COMPLEX #90 tab pantoprazole 40 mg tablet,delayed See Rx Instructions .ROUTE 05/16/21 release .COMPLEX #90 tab gabapentin 100 mg capsule 100 mg PO BID #60 cap 05/23/21 Hydrocortisone [Hydrocortisone 1% 1 applicatio TP BID #1 tube 06/06/21 Cream 30gm Tube] Allergies Allergy/AdvReac Type Severity Reaction Status Date / Time codeine [CODEINE] Allergy Intermediate ITCHING Verified 05/23/21 11:09 - Worker's Comp Is this a Worker's Comp case?: No [facility] History - Hepatitis A Screen Drug use history?: No High risk sexual behaviors?: No History of sexually transmitted infection?: No Currently employed?: No Childcare worker?: No Do you have indoor plumbing?: Yes Do you have electricity?: Yes Attestation statement:: This patient has been screened for Hepatitis A risk factors. I have reviewed the patient's past medical history: Yes Medical History: Reports:: Congestive Heart Failure, Coronary Artery Disease, Deep Vein Thrombosis, Gastroesophageal Reflux Disease(GERD), Hyperlipidemia, Hypertension, Myocardial Infarction, Peripheral Artery Disease [place]
[2021-06-06 10:13] VITALS: BP 137/61; PULSE 81; RESP 19; TEMP 36.6; O2SAT 97
== END 2021-06-06 10:14 | disposition home or self-care (01) ==
PROVIDERS: Emergency Provider Nurse Practitioner; PCP Emergency Medicine
DX: L40.9 Psoriasis, unspecified (principal); I25.10 Atherosclerotic heart disease of native coronary artery without angina pectoris; I25.2 Old myocardial infarction; I10 Essential (primary) hypertension; E78.5 Hyperlipidemia, unspecified; K21.9 Gastro-esophageal reflux disease without esophagitis; I50.9 Heart failure, unspecified; Z87.891 Personal history of nicotine dependence
CPT/HCPCS: G0463; 74176; 99202

== ENCOUNTER → 2021-09-08 10:41 | Outpatient (CLI) | payer MEDICARE, MEDICAID, SELFPAY ==
--- NOTE | 2021-09-08 10:47 | CA_ITS ---
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: CT Laterality: Bilateral Indications: left arm numbness Risk Factors Hypertension: Hyperlipidemia Smoking Doppler Spectral Velocity Analysis ECA (R) 79.70/ cm/s ECA (L) 72.20/ cm/s dICA (R) 93.70/37.20 cm/s dICA (L) 86.00/40.40 cm/s Suresh (R) 62.60/24.10 cm/s Suresh (L) 85.50/38.00 cm/s pICA (R) 47.00/15.50 cm/s pICA (L) 74.90/33.10 cm/s dCCA (R) 84.80/19.30 cm/s dCCA (L) 108.80/24.80 cm/s pCCA (R) 100.80/23.80 cm/s pCCA (L) 141.40/31.70 cm/s Vert (R) 36.20/ cm/s Vert (L) 51.40/ cm/s ICA/CCA 1.10 ICA/CCA 0.80 Findings Duplex evaluation demonstrates stenosis of the right proximal internal carotid artery <20%. Duplex evaluation demonstrates stenosis of the left proximal internal carotid artery <20%. Duplex evaluation demonstrates antegrade flow of the bilateral Vertebral Arteries. Mild plaque bilateral CCA. Conclusion Duplex evaluation demonstrates stenosis of the right proximal internal carotid artery <20%. Duplex evaluation demonstrates stenosis of the left proximal internal carotid artery <20%. Duplex evaluation demonstrates antegrade flow of the bilateral Vertebral Arteries. Mild plaque bilateral CCA. Electronically signed by : Katie Romero MD 09/09/2021 15:44:58
--- NOTE | 2021-09-08 11:49 | NM_ITS ---
APPROVED REPORT Exam: Nuclear Stress Test Indication: CAD, H/O WA, CABG, OBESITY, HTN, HYPERLIPIDEMIA, C.P., SOB, SYNCOPE, FATIGUE, ABN EKG Patient Location: Outpatient PR Tech:Rubi Michael, YELENAT, RT (R)(N) Ht: 5 ft 6 in Wt: 206 lbs HR: 73 bpm BP: 129/64 mmHg BSA: 2.02 m2 BMI: 33.2 History: CAD, H/O WA, CABG, OBESITY, HTN, HYPERLIPIDEMIA, C.P., SOB, SYNCOPE, FATIGUE, ABN EKG Procedure: Patient received a 0.4 mg of intravenous Lexiscan, resting heart rate 73 bpm, resting blood pressure 129/64 mmHg, with Lexiscan maximum heart rate achived was 97 bpm which is Less than 85 % of the maximum predicted heart rate and blood pressure was 129/64 mmHg. With Lexiscan, patient denied any complaint of chest pain. Electrocardiogram Resting electrocardiogram shows sinus rhythm, with Lexiscan there is less than 1.[address] segment depression noted from the baseline EKG. The EKG portion of the Lexiscan is nondiagnostic. Cardiac Stress and Resting SPECT Images: Cardiac Stress and Resting SPECT images were obtained using technetium 99m Myoview 29.6 mCi stress and 10.03 mCi at rest. Gated SPECT for analysis of segmental wall motion and calculation of the ejection fraction also done. Cardiac stress and resting SPECT images show uniform myocardial activity without segmental perfusion abnormality, computer derived ejection fraction is 48% with no regional wall motion abnormality, right ventricle is normal size and contractility. Conclusion: 1. The EKG portion of the Lexiscan is nondiagnostic. 2. No scintigraphic evidence of reversible ischemia seen, computer derived ejection fraction is 48% with no regional wall motion abnormality, right ventricle is normal size and contractility. 3. Normal Lexiscan Myoview study. Electronically signed by : Ryan Lopez MD 09/18/2021 12:50:41
--- NOTE | 2021-09-08 14:12 | HMH.ITSHM ---
Current Home Medications as stated by this patient Blaise Mccray or telemarketing representative. []TAMSULOSIN RIVAROXABAN PANTOPRAZOLE NITRO GABAPENTIN FLUTICASONE BISOPROLOL ATORVASTATIN ASA AMLODIPINE
--- NOTE | 2021-09-08 14:36 | CA_ITS ---
APPROVED REPORT Exam: Pharmacologic Technologist: Maria Eugenia Thomason, Ht: 5 ft 6 in Wt: 207 lbs BSA: 2.03 m2 HR: 68 bpm BP: 129/64 mmHg Medical History Medications: Amlodipine,,,,, Aspirin,,,,, Gabapentin,,,,, Pantoprazole,,,,, Atorvastatin,,,,, Flonase,,,,, XaRELTO,,,,, TAMSULOSIN,,,,, BisOPROLOL,,,,, Nitroglycerin,,,,, INCrUSE,,,,, Stress Test Details Test: LEXISCAN HR Resting HR: 73 bpm Max Heart Rate (APMHR): 159.551659 bpm Max HR Achieved: 97 bpm Target HR (85% APMHR): 135.434263 bpm % of APMHR: 61.01 Recovery HR: 91 bpm BP Resting BP: 129/64 mmHg Max BP: 129/64 mmHg Recovery BP: 126.0/70.0 mmHg ECG Resting ECG: NSR Clinical Reason for Termination: Completed Protocol Exercise duration: 04:02 min Highest Stage Achieved: Stress ECG Conclusion Symptoms: None Arrhythmias/Ectopy: None ST-T Changes: <1.5mm ST Segment changes Conclusion: Non-Diagnostic Electronically signed by : Alfonso Gaming MD 09/10/2021 13:55:01
== END ==
PROVIDERS: PCP Emergency Medicine; Visit Provider Urology
DX: E66.9 Obesity, unspecified (principal); E78.2 Mixed hyperlipidemia; I11.9 Hypertensive heart disease without heart failure; I25.10 Atherosclerotic heart disease of native coronary artery without angina pectoris; I25.709 Atherosclerosis of coronary artery bypass graft(s), unspecified, with unspecified angina pectoris; I73.9 Peripheral vascular disease, unspecified; M79.602 Pain in left arm; R09.89 Other specified symptoms and signs involving the circulatory and respiratory systems; R94.31 Abnormal electrocardiogram [ECG] [EKG]; Z72.0 Tobacco use; Z95.1 Presence of aortocoronary bypass graft; Z95.5 Presence of coronary angioplasty implant and graft; R06.09 Other forms of dyspnea; Z68.34 Body mass index [BMI] 34.0-34.9, adult
CPT/HCPCS: 78452; 93017; 93306; 93880; A9502; J2785

== ENCOUNTER → 2021-09-22 14:19 | Outpatient (CLI) | payer MEDICARE, MEDICAID, SELFPAY ==
[2021-09-22 14:41] LABS: Basophils # 0.1 K/mm3 (0-0.2); Basophils % 0.6 % (0.1-2.0); Eosinophils # 0.4 K/mm3 (0.0-0.4); Eosinophils % 4.2 % (0.1-12.0); Hematocrit 49.3 % (42.0-52.0); Hemoglobin 16.2 g/dL (14.1-18.0); Lymphocytes # 2.1 K/mm3 (0.7-4.5); Lymphocytes % 22.9 % (10-50); Mean Corpuscular HGB Conc 32.9 g/dL (31.8-35.4); Mean Corpuscular Hemoglobin 31.6 pg (27.0-31.2); Mean Corpuscular Volume 95.9 fl (80-94); Mean Platelet Volume 9.2 fl (7.4-10.4); Monocytes # 0.5 K/mm3 (0.1-1.0); Monocytes % 5.1 % (1.7-9.3); Neutrophils # 6.3 K/mm3 (1.8-7.8); Neutrophils % 67.2 % (37.0-80.0); Platelet Count 302 K/mm3 (142-424); Red Blood Count 5.14 M/mm3 (4.60-6.20); Red Cell Distribution Width 13.4 % (11.5-17.5); White Blood Count 9.4 K/mm3 (4.8-10.8)
[2021-09-22 14:47] LABS: Alanine Aminotransferase 22 U/L (12-78); Albumin/Globulin Ratio 1.2 (1.1-1.8); Alkaline Phosphatase 93 U/L (38-126); Anion Gap 12.1 mEq/L (5-15); Aspartate Amino Transferase 27 U/L (17-59); Bilirubin,Total 0.4 mg/dl (0.2-1.3); Blood Urea Nitrogen 10 mg/dl (9-20); Calcium 8.9 mg/dl (8.4-10.2); Carbon Dioxide 31 mmol/L (22.0-30.0); Chloride 100 mmol/L (98-107); Chol/HDL Ratio 3.9 (1-3.5); Cholesterol 140 mg/dl (140-200); Estimated Glomerular Filt Rate 137 ml/min (>60); GFR (African American) 166 ML/MIN (>60); Globulin 3.3 g/dL (1.3-3.2); Glucose 180 mg/dl (74-100); HDL Cholesterol 36 mg/dl (40-60); Potassium 4.1 mmoL/L (3.5-5.1); Sodium 139 mmol/L (136-145); Total Protein,Serum 7.3 g/dl (6.3-8.2); Triglycerides 151 mg/dl (30-150); VLDL Cholesterol 30 mg/dL (0-40)
[2021-09-22 14:58] LABS: Direct LDL Cholesterol 71.32 mg/dL (100-129)
[2021-09-22 15:04] LABS: 25-OH Vitamin D, Total 32.2 ng/mL (30-100)
[2021-09-22 15:05] LABS: Free T4 (Free Thyroxine) 1.01 ng/dl (0.78-2.19)
[2021-09-22 15:18] LABS: Prostate Specific Ag Screen 0.4 ng/ml (0.0-4.0); Thyroid Stimulating Hormone 0.84 uIU/mL (0.465-4.68)
== END ==
PROVIDERS: Visit Provider Emergency Medicine
DX: M50.90 Cervical disc disorder, unspecified, unspecified cervical region (principal); Z12.5 Encounter for screening for malignant neoplasm of prostate; L40.9 Psoriasis, unspecified; E55.9 Vitamin D deficiency, unspecified; R20.0 Anesthesia of skin
CPT/HCPCS: 80053; 80061; 82306; 84439; 84443; 85025; G0103

== ENCOUNTER → 2023-07-22 16:44 | Outpatient (CLI) | payer MEDICARE, MEDICAID, SELFPAY ==
[2023-07-22 15:00] LABS: Basophils # 0.1 K/mm3 (0-0.2); Basophils % 0.6 % (0.1-2.0); Eosinophils # 0.5 K/mm3 (0.0-0.4); Eosinophils % 4.8 % (0.1-12.0); Hemoglobin 16.3 g/dL (14.1-18.0); Lymphocytes # 3.3 K/mm3 (0.7-4.5); Lymphocytes % 29.5 % (10-50); Mean Corpuscular HGB Conc 31.4 g/dL (31.8-35.4); Mean Corpuscular Hemoglobin 29.7 pg (27.0-31.2); Mean Corpuscular Volume 94.7 fl (80-94); Mean Platelet Volume 8.8 fl (7.4-10.4); Monocytes # 0.5 K/mm3 (0.1-1.0); Monocytes % 4.7 % (1.7-9.3); Neutrophils # 6.8 K/mm3 (1.8-7.8); Neutrophils % 60.4 % (37.0-80.0); Platelet Count 259 K/mm3 (142-424); Red Blood Count 5.49 M/mm3 (4.60-6.20); Red Cell Distribution Width 13.6 % (11.5-17.5); White Blood Count 11.2 K/mm3 (4.8-10.8)
[2023-07-22 15:10] LABS: Chloride 104 mmol/L (98-107); Sodium 140 mmol/L (136-145)
[2023-07-22 15:13] LABS: Alanine Aminotransferase 42 U/L (12-78); Alkaline Phosphatase 121 U/L (38-126); Aspartate Amino Transferase 36 U/L (17-59); Bilirubin,Total 0.6 mg/dl (0.2-1.3); Blood Urea Nitrogen 12 mg/dl (9-20); Carbon Dioxide 23 mmol/L (22.0-30.0); Cholesterol 136 mg/dl (140-200); Estimated Glomerular Filt Rate 98 ml/min (>60); GFR (African American) 118 ML/MIN (>60); Triglycerides 118 mg/dl (30-150); VLDL Cholesterol 24 mg/dL (0-40)
[2023-07-22 15:14] LABS: Albumin Level 4.2 g/dl (3.5-5.0); Albumin/Globulin Ratio 1.1 (1.1-1.8); Calcium 9.3 mg/dl (8.4-10.2); Globulin 3.8 g/dL (1.3-3.2); Glucose 157 mg/dl (74-100); HDL Cholesterol 34 mg/dl (40-60)
[2023-07-22 15:26] LABS: Direct LDL Cholesterol 68.39 mg/dL (100-129)
[2023-07-22 15:30] LABS: T4 (Thyroxine) 8.1 ug/dl (5.53-11.0)
[2023-07-22 15:44] LABS: Thyroid Stimulating Hormone 3.09 uIU/mL (0.465-4.68)
[2023-07-22 15:54] LABS: Hemoglobin A1C 6.2 % (4.0-6.0)
[2023-07-22 16:22] LABS: Prostate Specific Ag Screen 0.4 ng/ml (0.0-4.0)
== END ==
LOC: LAB.DROPOF 16:45
PROVIDERS: PCP Emergency Medicine; Visit Provider Emergency Medicine
DX: E11.9 Type 2 diabetes mellitus without complications (principal); E78.5 Hyperlipidemia, unspecified; E78.2 Mixed hyperlipidemia; Z12.5 Encounter for screening for malignant neoplasm of prostate
CPT/HCPCS: 80053; 80061; 83036; 84436; 84443; 85025; G0103

== ENCOUNTER → 2023-11-05 08:29 | Outpatient (CLI) | payer MEDICARE, MEDICAID, SELFPAY ==
[2023-11-05 20:08] LABS: Amphetamine/Metha Screen,Urine Negative ng/ml (<1000)
[2023-11-05 20:10] LABS: Barbiturates Screen,Urine Negative ng/ml (<200)
[2023-11-05 20:11] LABS: Benzodiazepines Screen,Urine Negative ng/ml (<200); Cannabinoid Screen,Urine Negative ng/ml (<50)
[2023-11-05 20:13] LABS: Methadone Screen,Urine Negative ng/ml (<300); Opiate Screen,Urine Negative ng/ml (<300)
[2023-11-05 20:20] LABS: Cocaine Screen,Urine Negative ng/ml (<300)
[2023-11-05 22:36] LABS: Phencyclidine Screen,Urine Negative ng/ml (<25)
== END ==
PROVIDERS: PCP Nurse Practitioner Family; Visit Provider Nurse Practitioner Family
DX: Z79.899 Other long term (current) drug therapy (principal)
CPT/HCPCS: 80305

== ENCOUNTER 2024-08-02 19:09 | Outpatient (CLI) | payer MEDICARE, MEDICAID, SELFPAY ==
[2024-08-02 19:59] LABS: Hemoglobin A1C 6.1 % (4.0-6.0)
[2024-08-02 20:27] LABS: Albumin Level 4.3 g/dl (3.5-5.0); Chloride 105 mmol/L (98-107); Sodium 137 mmol/L (136-145)
[2024-08-02 20:28] LABS: Potassium 4.3 mmoL/L (3.5-5.1)
[2024-08-02 20:30] LABS: Albumin/Globulin Ratio 1.2 (1.1-1.8); Alkaline Phosphatase 116 U/L (38-126); Anion Gap 9.3 mEq/L (5-15); Bilirubin,Total 0.7 mg/dl (0.2-1.3); Carbon Dioxide 27 mmol/L (22.0-30.0); Cholesterol 131 mg/dl (140-200); Globulin 3.5 g/dL (1.3-3.2); Total Protein,Serum 7.8 g/dl (6.3-8.2); Triglycerides 91 mg/dl (30-150); VLDL Cholesterol 18 mg/dL (0-40)
[2024-08-02 20:31] LABS: Calcium 8.8 mg/dl (8.4-10.2); Chol/HDL Ratio 3.4 (1-3.5); Glucose 147 mg/dl (74-100); HDL Cholesterol 39 mg/dl (40-60)
[2024-08-02 20:41] LABS: Direct LDL Cholesterol 66.52 mg/dL (100-129)
[2024-08-02 21:26] LABS: Alanine Aminotransferase 39 U/L (12-78); Aspartate Amino Transferase 36 U/L (17-59); Blood Urea Nitrogen 11 mg/dl (9-20); Estimated Glomerular Filt Rate 97 ml/min (>60); GFR (African American) 118 ML/MIN (>60)
[2024-08-02 22:07] LABS: Prostate Specific Ag Screen 0.5 ng/ml (0.0-4.0)
== END 2024-08-02 23:59 | disposition home or self-care (01) ==
LOC: LAB.DROPOF 19:12
PROVIDERS: PCP Family Medicine; Visit Provider Family Medicine
DX: E11.9 Type 2 diabetes mellitus without complications (principal); M54.50 Low back pain, unspecified; Z12.5 Encounter for screening for malignant neoplasm of prostate
CPT/HCPCS: 80053; 80061; 83036; G0103

== ENCOUNTER 2024-10-26 09:15 | Emergency (ER) | payer MEDICARE, MEDICAID, SELFPAY ==
--- NOTE | 2024-10-26 09:55 | XR_ITS ---
FINAL REPORT CLINICAL HISTORY: fall, 1 month ago FINDINGS: Right foot Three views were obtained. There is no fracture or dislocation. There are mild degenerative changes. Mild hallux valgus deformity is identified. No soft tissue abnormality is identified. IMPRESSION: No acute process. Reviewed, Interpreted and Dictated by Moris Hernandez III, MD Transcribed by Tara Arreola Authenticated and [facility]
--- NOTE | 2024-10-26 09:55 | XR_ITS ---
FINAL REPORT CLINICAL HISTORY: fall 1 month ago FINDINGS: Right ankle Three views were obtained. There is no fracture or dislocation. There are mild degenerative changes. Postoperative changes are seen in the medial soft tissues. IMPRESSION: No acute process. Reviewed, Interpreted and Dictated by Moris Hernandez III, MD Transcribed by Tara Arreola Authenticated and [facility]
--- NOTE | 2024-10-26 09:55 | XR_ITS ---
FINAL REPORT CLINICAL HISTORY: pain in heel FINDINGS: Left foot Three views were obtained. There is no fracture or dislocation. Mild degenerative changes are present. There is a posterior calcaneal spur. No soft tissue abnormality is identified. IMPRESSION: No acute process. Reviewed, Interpreted and Dictated by Moris Hernandez III, MD Transcribed by Tara Arreola Authenticated and [facility]
[2024-10-26 10:00] VITALS: BP 141/79; PULSE 101; RESP 18; TEMP 37.1; O2SAT 96; BMI 32.6
--- NOTE | 2024-10-26 10:34 | ED_ITS ---
Discharge Plan Disposition Patient Disposition: Home, Self-Care Condition: Good Prescriptions Prescriptions: No Action atorvastatin 40 mg tablet 40 mg PO HS Patient Comments: TAKE 1 TABLET BY MOUTH EVERYDAY AT BEDTIME amlodipine 5 mg tablet 5 mg PO DAILY Patient Comments: TAKE 1 TABLET BY MOUTH EVERY DAY aspirin 81 mg tablet,delayed release (DR/EC) 81 mg PO DAILY Patient Comments: TAKE 1 TABLET BY MOUTH EVERY DAY FOR BLOOD THINNER pantoprazole 40 mg tablet,delayed release (DR/EC) 40 mg PO HS Patient Comments: TAKE 1 TABLET BY MOUTH NIGHTLY AT BEDTIME azelastine 137 mcg (0.1 %) spray,non-aerosol 2 spray INTRANASAL BID Patient Comments: INSTILL 2 SPRAY IN EACH NOSTRIL TWICE A DAY fluticasone furoate-vilanterol [Breo Ellipta] 100-25 mcg/dose blister with device 1 ea INHALATION DAILY Patient Comments: INHALE 1 PUFF DAILY FOR BREATHING PROBLEMS Xarelto 2.5 mg tablet 2.5 mg PO BID Patient Comments: TAKE 1 TABLET ORALLY TWICE DAILY Referrals Follow up/Referrals: Hetal Figueroa APRN [Primary Care Provider] - See instructions Pamella Haley APRN [Nurse Practitioner] - See instructions Activity Restrictions/Add. Instructions Additional Instructions/Restrictions: Make sure to follow up to get your xray results Over the counter Motrin and/or Tylenol for pain Follow up with your Family Doctor or Podiatry if pain persists Clinical Impressions Clinical Impression: Lower extremity pain, bilateral Instructions Patient Instructions: DI for Ankle Pain, DI for Foot Pain Print Language Print Language: French Discharge ED Provider: Charlene Phillips [facility] General Stated complaint: pain in feet Mode of Arrival: Ambulatory Source of Information: Patient Limitations: No Limitations Time Seen by Provider: 10/26/24 10:34 Description of Symptoms (Recalled from Triage Doc. by RN): PATIENT C/O BILATERAL FOOT PAIN. HE STATES HE TWISTED HIS RIGHT FOOT APPROX 1 MONTH AGO AND C/O LEFT HEEL PAIN THAT STARTED 1 WEEK AGO HEENT Symptoms (Recalled from RN notes): No Resp Symptoms (Recalled from RN notes): No Skin Symptoms (Recalled from RN notes): No MS Symptoms (Recalled from RN notes): Yes Functional Status (Recalled from RN notes): WNL History of Present Illness Provider Complaint: Patient states that he was walking along side the road a few months ago and twisted his right foot and ankle and on and off since then he has been having pain and swelling no swelling right now just hurts certain ways he moves it and then about a month ago started having pain in his left heel like he has bruised it so today he came in to get it checked Denies new injury Related Data Home Medications ?Medication ?Instructions ?Recorded ?Confirmed amlodipine 5 mg tablet 5 mg PO DAILY 10/26/24 10/26/24 aspirin 81 mg tablet,delayed 81 mg PO DAILY 10/26/24 10/26/24 release atorvastatin 40 mg tablet 40 mg PO HS 10/26/24 10/26/24 azelastine 137 mcg (0.1 %) nasal 2 spray intranasal BID 10/26/24 10/26/24 spray fluticasone furoate 100 1 ea inhalation DAILY 10/26/24 10/26/24 mcg-vilanterol 25 mcg/dose inhalation powder (Breo Ellipta) pantoprazole 40 mg tablet,delayed 40 mg PO HS 10/26/24 10/26/24 release rivaroxaban 2.5 mg tablet (Xarelto) 2.5 mg PO BID 10/26/24 10/26/24 Allergies Allergy/AdvReac Type Severity Reaction Status Date / Time codeine (CODEINE) Allergy Intermediate ITCHING Verified 08/09/24 13:53 Worker's Comp Is this a Worker's Comp case?: No [facility] Disclaimer: The information contained in this section may have been updated after the patient was seen, as this information can be updated by other users. Medical History Ear canal abrasion Hearing difficulty of both ears Congestion of both ears Weak pulse Left arm numbness Left arm pain PAD (peripheral artery disease) Surgical History History of dental surgery all teeth removed History of hand surgery thumb/finger sewed back on History of open heart surgery double bypass Social History Smoking Status: Current some day smoker tobacco type: cigarettes second hand exposure: No alcohol intake: never substance use type: former substance user current occupational status: other Travel in the last 8 weeks: None household members: friend(s) housing: house current occupational exposures/hazards: No caffeine: Yes ROS Obtained: Yes All systems reviewed & no additional complaints except as documented and Yes Systems reviewed as appropriate & no additional complaints except as documented Constitutional Constitutional: Reports system reviewed and no additional complaints, except as documented and Reports as per HPI Cardiovascular Cardiovascular: Reports system reviewed and no additional complaints, except as documented and Reports as per HPI Respiratory Respiratory: Reports system reviewed and no additional complaints, except as documented and Reports as per HPI Gastrointestinal Gastrointestingal: Reports system reviewed and no additional complaints, except as documented and as per HPI Genitourinary Male Genitourinary: Reports system reviewed and no additional complaints, except as documented and Reports as per HPI Musculoskeletal Musculoskeletal: Reports system reviewed and no additional complaints, except as documented, Reports as per HPI and Reports other Comments: Pain in right ankle and foot and pain in left heel area Physical Exam General General appearance: alert and in no apparent distress Respiratory Respiratory exam: Present normal lung sounds bilaterally; Absent respiratory distress or wheezes Cardiovascular Cardiovascular exam: Present regular rate, normal rhythm and normal heart sounds Expanded Lower Extremity Exam Right: Ankle exam: Present tenderness; Absent swelling, abrasion, laceration, ecchymosis or erythema Foot/toe exam: Present tenderness; Absent swelling, laceration, ecchymosis or erythema Neurovascular/Tendon exam: Present normal capillary refill Gait: observed and normal Left: Foot/toe exam: Present tenderness; Absent swelling, laceration, ecchymosis, deformity or erythema Bottom foot image: 2 1. reports tenderness feels bruised, no swelling no redness Gait: observed and normal Neurological Exam Neurological exam: Present alert, oriented X3 and normal gait Medical Decision Making Medical Records Screening: Per USPSTF and CDC recommendations, given the prevalence of disease in our region, it is our hospital?s policy to screen for HIV and viral Hepatitis for all patients aged 18 and over and those with ongoing risk factors. Renny Inquiry Pt receiving controlled substance: No Renny was queried for this patient: No Vital Signs: 10/26/24 10:00 Temperature 98.7 F Temperature Source Oral Pulse Rate [Left Brachial] 101 H Respiratory Rate 18 Blood Pressure [Left Arm] 141/79 H Blood Pressure Mean [Left Arm] 99 Blood Pressure Source [Left Arm] Automatic Cuff Blood Pressure Position [Left Arm] Sitting 02 Sat by Pulse Oximetry 96 Oxygen Delivery Method Room Air Orders (Tests/Meds): ORDERS Category Date Time Status XR ankle RT min 3V Stat Exams 10/26/24 09:55 Taken XR foot LT min 3V Stat Exams 10/26/24 09:55 Taken XR foot RT min 3V Stat Exams 10/26/24 09:55 Taken Radiology Data #1: Image(s): Ankle Image Reviewed: Yes I have reviewed radiologist's interpretation IMPRESSION: No acute process. #2: Image(s): Foot/Toes (right) Image Reviewed: Yes I have reviewed radiologist's interpretation IMPRESSION: No acute process. #3: Image(s): Foot/Toes (left) Image Reviewed: Yes I have reviewed radiologist's interpretation IMPRESSION: No acute process. 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
[2024-10-26 11:12] VITALS: BP 141/79; PULSE 101; RESP 18; TEMP 37.1; O2SAT 96
== END 2024-10-26 11:17 | disposition home or self-care (01) ==
PROVIDERS: Emergency Provider Nurse Practitioner; PCP Family Medicine
DX: M79.671 Pain in right foot (principal); M79.672 Pain in left foot; M25.571 Pain in right ankle and joints of right foot
CPT/HCPCS: 73610; 73630; 99212; G0381

== ENCOUNTER 2024-11-23 14:26 | Outpatient (CLI) | payer MEDICARE, MEDICAID, SELFPAY ==
[2024-11-23 18:27] LABS: Basophils # 0.1 K/mm3 (0-0.2); Basophils % 0.7 % (0.1-2.0); Eosinophils # 0.5 K/mm3 (0.0-0.4); Eosinophils % 4.4 % (0.1-12.0); Hematocrit 46.5 % (42.0-52.0); Hemoglobin 15.5 g/dL (14.1-18.0); Lymphocytes # 4.2 K/mm3 (0.7-4.5); Lymphocytes % 39.1 % (10-50); Mean Corpuscular HGB Conc 33.3 g/dL (31.8-35.4); Mean Corpuscular Hemoglobin 29.9 pg (27.0-31.2); Mean Corpuscular Volume 89.8 fl (80-94); Mean Platelet Volume 10.1 fl (7.4-10.4); Monocytes # 0.7 K/mm3 (0.1-1.0); Monocytes % 6.5 % (1.7-9.3); Neutrophils # 5.3 K/mm3 (1.8-7.8); Neutrophils % 49.2 % (37.0-80.0); Platelet Count 274 K/mm3 (142-424); Red Blood Count 5.18 M/mm3 (4.60-6.20); White Blood Count 10.8 K/mm3 (4.8-10.8)
[2024-11-23 19:33] LABS: Thyroid Stimulating Hormone 1.71 uIU/mL (0.465-4.68)
[2024-11-23 19:41] LABS: Hemoglobin A1C 6.2 % (4.0-6.0)
== END 2024-11-23 23:59 | disposition home or self-care (01) ==
LOC: LAB.DROPOF 11-24 10:44
PROVIDERS: PCP Family Medicine; Visit Provider Family Medicine
DX: E78.2 Mixed hyperlipidemia (principal); I11.9 Hypertensive heart disease without heart failure; E11.9 Type 2 diabetes mellitus without complications
CPT/HCPCS: 83036; 84443; 85025

== ENCOUNTER 2024-12-07 10:35 | Outpatient (CLI) | payer MEDICARE, MEDICAID, SELFPAY ==
--- NOTE | 2024-12-07 10:35 | CT_ITS ---
FINAL REPORT TECHNIQUE: Thin section axial CT images of the facial bones and sinuses were obtained without contrast. Coronal reformatted images were also obtained.This study was performed with techniques to keep radiation doses as low as reasonably achievable, (ALARA). Individualized dose reduction techniques using automated exposure control or adjustment of mA and/or kV according to the patient's size were employed. CLINICAL HISTORY: sinusitis COMPARISON: None FINDINGS: Mild mucoperiosteal thickening is noted in the ethmoid air cells. No fluid levels are identified. The ostiomeatal units have an unremarkable appearance. No fracture or acute bony abnormality is identified. IMPRESSION: Mild mucoperiosteal thickening of the ethmoid air cells, without air-fluid levels. Reviewed, Interpreted and Dictated by Constantin Tran MD Transcribed by Leigha Steve Authenticated and [facility]
--- NOTE | 2024-12-07 10:37 | XR_ITS ---
FINAL REPORT CLINICAL HISTORY: back pain COMPARISON: Thoracic spine 3 views, lumbosacral spine 3 views FINDINGS: THORACIC SPINE: AP, lateral, and swimmer's views of the thoracic spine were obtained. There is no prior exam for comparison. There is no acute fracture or malalignment. Vertebral body height is preserved. Anterior osteophytes are present in the mid and lower thoracic spine. Paraspinal soft tissues are within normal limits. IMPRESSION: Anterior osteophytes are present in the mid and lower thoracic spine. No acute bony abnormality identified. LUMBAR SPINE: AP and lateral views of the lumbar spine were obtained. There is no prior exam for comparison. There is no acute fracture or malalignment. Vertebral body height is preserved. Advanced sclerosis of the facets in the mid and lower lumbar spine is noted. Disc space height is preserved. No acute paraspinal abnormality. IMPRESSION: Advanced facet sclerosis in the mid and lower lumbar spine without acute bony abnormality. Reviewed, Interpreted and Dictated by Constantin Tran MD Transcribed by Leigha Steve Authenticated and . [facility]
--- NOTE | 2024-12-07 10:37 | XR_ITS ---
FINAL REPORT CLINICAL HISTORY: foot pain COMPARISON: None FINDINGS: LEFT FOOT Three views of the left foot demonstrate no acute fracture or dislocation. The visualized joint spaces are normally aligned. A minimal Marivel deformity is present. IMPRESSION: No acute bony abnormality. Reviewed, Interpreted and Dictated by Constantin Tran MD Transcribed by Leigha Steve Authenticated and [facility]
--- NOTE | 2024-12-07 10:37 | XR_ITS ---
FINAL REPORT CLINICAL HISTORY: foot pain COMPARISON: None FINDINGS: RIGHT FOOT 3 views of the right foot were obtained. There is no acute fracture or dislocation. Visualized joint spaces are normally aligned. Surgical clips are noted adjacent to the medial malleolus. A minimal Marivel deformity is noted. IMPRESSION: No acute bony abnormality. Reviewed, Interpreted and Dictated by Constantin Tran MD Transcribed by Leigha Steve Authenticated and . [facility]
== END 2024-12-07 23:59 | disposition home or self-care (01) ==
LOC: RAD 10:35
PROVIDERS: PCP Family Medicine; Visit Provider Nurse Practitioner
DX: J34.2 Deviated nasal septum (principal); H93.8X3 Other specified disorders of ear, bilateral; H91.93 Unspecified hearing loss, bilateral; M79.671 Pain in right foot; M79.672 Pain in left foot; M54.9 Dorsalgia, unspecified
CPT/HCPCS: 70486; 72084; 73630